=== PATIENT | male | born 1990 | race American Indian/Alaskan Native ===

== ENCOUNTER 2022-04-10 15:00 | Emergency (ER) | payer OTHER ==
[2022-04-10 19:56] VITALS: BP 136/74
[2022-04-10] MEDS ORDERED: IBUPROFEN 800 MG TAB PO ONE (21:06)
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
== END 2022-04-10 22:40 | disposition home or self-care (01) ==
LOC: ED 15:00
DX: M54.50 Low back pain, unspecified (principal); V89.2XXA Person injured in unspecified motor-vehicle accident, traffic, initial encounter; Y93.89 Activity, other specified; Y92.89 Other specified places as the place of occurrence of the external cause; Y99.8 Other external cause status
CPT/HCPCS: 99283